=== PATIENT | female | born 1955 | race African-American/Black ===

== ENCOUNTER 2017-09-26 08:57 | Inpatient (IN) | payer MEDICARE, OTHER ==
[~2017-09-26] VITALS: Ht 167.6 cm; Wt 59.0 kg
[~2017-09-26 08:57] MED LIST: LEVE250T PO
[2017-09-26] MEDS ORDERED: LOSA1TAB37 PO (08:59)
[2017-09-26] MEDS ORDERED: LORazepam 2 MG/ML VIAL IVP ONE (09:15)
[2017-09-26 09:25] LABS: BASOPHILS % (AUTO) 0.2 % (0.0-2.0); EOSINOPHILS % (AUTO) 1.3 % (1.0-6.0); HEMATOCRIT 33.5 % (36-46); HEMOGLOBIN 11.3 g/dL (12.0-16.0); LYMPHOCYTES # (AUTO) 1.8 K/uL (1.0-4.8); LYMPHOCYTES % (AUTO) 37.2 % (22.0-44.0); MEAN CORPUSCULAR HEMOGLOBIN 28.5 pg (26.0-34.0); MEAN CORPUSCULAR HGB CONC 33.9 G/dL (31.0-37.0); MEAN CORPUSCULAR VOLUME 84 fL (80-100); MONOCYTES # (AUTO) 0.6 K/uL (0.1-1.0); MONOCYTES % (AUTO) 11.1 % (2.0-9.0); NEUTROPHILS # (AUTO) 2.5 K/uL (1.8-7.7); NEUTROPHILS % (AUTO) 50.2 % (40.0-70.0); PLATELET COUNT (AUTO) 164 K/uL (150-450); RED BLOOD CELL COUNT(AUTO) 3.98 MIL/uL (4.00-5.20); RED CELL DISTRIBUTION WIDTH 14.1 % (11.5-14.5)
[2017-09-26 09:40] LABS: ANION GAP 14 mmol/L (8-16); CALCIUM, TOTAL 8.9 mg/dL (8.8-10.5); CARBON DIOXIDE 24 mmol/L (22-29); CHLORIDE 105 mmol/L (98-107); CREATININE 0.95 mg/dL (0.60-1.30); GLOMERULAR FILTR. RATE CALC > 60 mL/min (>60); POTASSIUM 3.4 mmol/L (3.5-5.1); SODIUM SERUM 143 mmol/L (136-145); UREA NITROGEN, BLOOD 21 mg/dL (7-18)
[2017-09-26 09:46] LABS: ALANINE AMINOTRANSFERASE 15 U/L (12-78); ALBUMIN 3.7 g/dL (3.4-5.0); ASPARTATE AMINOTRANSFERASE 14 U/L (15-37); BILIRUBIN,TOTAL 0.2 mg/dL (0.1-1.0); TOTAL PROTEIN, SERUM 7.8 g/dL (6.4-8.2)
[2017-09-26] MEDS ORDERED: ACETAMINOPHEN 1000 MG/ISO-OSM 100 ML IV ONE (10:45)
[2017-09-26] MEDS ORDERED: LevETIRAcetam 500 MG in DEXTROSE 5%-WATER 100 ML IV ONE (10:45)
[2017-09-26] MEDS ORDERED: PHENYTOIN SODIUM 1,000 MG in SODIUM CHLORIDE 0.9% 150 ML IV ONE (10:45)
[2017-09-26] MEDS ORDERED: ACETAMINOPHEN 325 MG TABLET PO PRN (11:00)
[2017-09-26] MEDS ORDERED: MAGNESIUM HYDROXIDE SUSPENSION 30 ML UDCUP PO PRN (11:00)
[2017-09-26] MEDS ORDERED: LORazepam 2 MG/ML VIAL IVP PRN (11:00)
[2017-09-26] MEDS ORDERED: ALBUTEROL SULFATE 2.5 MG/0.5 ML NEB SOLUTION NEB PRN (11:00)
[2017-09-26] MEDS ORDERED: POTASSIUM CHL 10 MEQ/WATER 50 ML IV PRN (11:00)
[2017-09-26 11:57] VITALS: BP 134/78
[2017-09-26] MEDS ORDERED: LevETIRAcetam 1,000 MG in DEXTROSE 5%-WATER 100 ML IV ONE (12:00)
[2017-09-26] MEDS ORDERED: SODIUM CHLORIDE 0.9% 100 ML ONE (12:20)
[2017-09-26] MEDS: POTASSIUM CHLORIDE 20 MEQ ER TABLET PO PRN (12:53)
[2017-09-26] MEDS ORDERED: INFLUENZA VIRUS VACCINE QVS 2017-18 (3YR+)/PF 60 MCG/0.5 ML SYRINGE IM ONE (15:15)
[2017-09-26 15:17] VITALS: BP 113/76
[2017-09-26] MEDS: HEPARIN SODIUM,PORCINE 5,000 UNITS/ML VIAL SQ SCH (20:02)
[2017-09-26] MEDS: DOCUSATE SODIUM 100 MG CAPSULE PO SCH (20:02)
[2017-09-26 20:04] VITALS: BP 137/63
[2017-09-26] MEDS ORDERED: LevETIRAcetam 500 MG in DEXTROSE 5%-WATER 100 ML IV SCH (23:00)
[2017-09-26] MEDS: LevETIRAcetam 1,500 MG in DEXTROSE 5%-WATER 100 ML IV SCH (23:22)
[2017-09-26 23:40] VITALS: BP 144/82
[2017-09-27 04:04] VITALS: BP 128/81
[2017-09-27 07:03] VITALS: BP 119/78
[2017-09-27] MEDS: PANTOPRAZOLE SODIUM 40 MG DR TABLET PO SCH (08:16)
[2017-09-27] MEDS: DOCUSATE SODIUM 100 MG CAPSULE PO SCH ×2 (08:16→19:46)
[2017-09-27] MEDS: HEPARIN SODIUM,PORCINE 5,000 UNITS/ML VIAL SQ SCH ×2 (08:16→19:46)
[2017-09-27 10:42] VITALS: BP 123/80
[2017-09-27] MEDS ORDERED: SODIUM CHLORIDE 0.9% 50 ML ONE (11:58)
[2017-09-27] MEDS: LevETIRAcetam 1,500 MG in DEXTROSE 5%-WATER 100 ML IV SCH (12:01)
[2017-09-27 15:25] VITALS: BP 146/88
[2017-09-27] MEDS: ASPIRIN 81 MG CHEWABLE TABLET PO SCH (15:47)
[2017-09-27] MEDS: ATORVASTATIN CALCIUM 20 MG TABLET PO SCH (15:47)
[2017-09-27 19:33] VITALS: BP 112/74
[2017-09-27 23:32] VITALS: BP 138/83
[2017-09-28] MEDS: LevETIRAcetam 1,500 MG in DEXTROSE 5%-WATER 100 ML IV SCH ×2 (00:36→12:20)
[2017-09-28 04:23] VITALS: BP 129/81
[2017-09-28 06:19] LABS: BASOPHILS # (AUTO) 0.01 K/uL (0.00-0.20); BASOPHILS % (AUTO) 0.1 % (0.0-2.0); EOSINOPHILS # (AUTO) 0.03 K/uL (0.00-0.70); EOSINOPHILS % (AUTO) 0.62 % (1.0-6.0); HEMATOCRIT 33.4 % (36-46); HEMOGLOBIN 11.1 g/dL (12.0-16.0); LYMPHOCYTES # (AUTO) 1.7 K/uL (1.0-4.8); LYMPHOCYTES % (AUTO) 33.8 % (22.0-44.0); MEAN CORPUSCULAR HEMOGLOBIN 28.3 pg (26.0-34.0); MEAN CORPUSCULAR HGB CONC 33.3 G/dL (31.0-37.0); MEAN CORPUSCULAR VOLUME 85 fL (80-100); MONOCYTES # (AUTO) 0.6 K/uL (0.1-1.0); MONOCYTES % (AUTO) 12.2 % (2.0-9.0); NEUTROPHILS # (AUTO) 2.7 K/uL (1.8-7.7); NEUTROPHILS % (AUTO) 53.2 % (40.0-70.0); PLATELET COUNT (AUTO) 156 K/uL (150-450); RED BLOOD CELL COUNT(AUTO) 3.93 MIL/uL (4.00-5.20); RED CELL DISTRIBUTION WIDTH 14.2 % (11.5-14.5)
[2017-09-28 06:28] LABS: ANION GAP 7 mmol/L (8-16); CALCIUM, TOTAL 8.8 mg/dL (8.8-10.5); CARBON DIOXIDE 30 mmol/L (22-29); CHLORIDE 103 mmol/L (98-107); CREATININE 0.73 mg/dL (0.60-1.30); GLOMERULAR FILTR. RATE CALC > 60 mL/min (>60); POTASSIUM 3.3 mmol/L (3.5-5.1); SODIUM SERUM 140 mmol/L (136-145); UREA NITROGEN, BLOOD 9 mg/dL (7-18)
[2017-09-28 07:18] LABS: RBC MORPHOLOGY COMMENT NORMAL RBC MORPH
[2017-09-28 07:28] VITALS: BP 142/90
[2017-09-28] MEDS: PANTOPRAZOLE SODIUM 40 MG DR TABLET PO SCH (08:45)
[2017-09-28] MEDS: DOCUSATE SODIUM 100 MG CAPSULE PO SCH (08:45)
[2017-09-28] MEDS: ATORVASTATIN CALCIUM 20 MG TABLET PO SCH (08:45)
[2017-09-28] MEDS: POTASSIUM CHLORIDE 20 MEQ ER TABLET PO PRN (08:46)
[2017-09-28] MEDS: ASPIRIN 81 MG CHEWABLE TABLET PO SCH (08:46)
[2017-09-28] MEDS: HEPARIN SODIUM,PORCINE 5,000 UNITS/ML VIAL SQ SCH (08:47)
[2017-09-28 11:31] VITALS: BP 120/87
[2017-09-28] MEDS ORDERED: SODIUM CHLORIDE 0.9% 50 ML ONE (11:57)
[2017-09-28] MEDS ORDERED: LEVE500T53 PO (14:32)
[2017-09-28] MEDS ORDERED: ASPI81 PO (14:32)
== END 2017-09-28 15:00 | disposition home or self-care (01) | DRG 100 ==
LOC: EMS 08:59 → 5S 10:47
PROVIDERS: ADMIT Internal Medicine; ATTEND Internal Medicine
PROC: 3E0234Z Introduction of Serum, Toxoid and Vaccine into Muscle, Percutaneous Approach (ICD-10-PCS; principal; 2017-09-26)
DX: G40.909 Epilepsy, unspecified, not intractable, without status epilepticus (principal); E43 Unspecified severe protein-calorie malnutrition; I50.9 Heart failure, unspecified; I11.0 Hypertensive heart disease with heart failure; W19.XXXA Unspecified fall, initial encounter; F01.50 Vascular dementia, unspecified severity, without behavioral disturbance, psychotic disturbance, mood disturbance, and anxiety; E87.6 Hypokalemia; J44.9 Chronic obstructive pulmonary disease, unspecified; S00.83XA Contusion of other part of head, initial encounter; M19.90 Unspecified osteoarthritis, unspecified site; F17.210 Nicotine dependence, cigarettes, uncomplicated; Z86.69 Personal history of other diseases of the nervous system and sense organs; Z86.73 Personal history of transient ischemic attack (TIA), and cerebral infarction without residual deficits; Z79.899 Other long term (current) drug therapy; Z71.6 Tobacco abuse counseling; Z68.21 Body mass index [BMI] 21.0-21.9, adult; Z23 Encounter for immunization; Z82.49 Family history of ischemic heart disease and other diseases of the circulatory system; Y93.89 Activity, other specified; Y92.89 Other specified places as the place of occurrence of the external cause; Y99.8 Other external cause status
CPT/HCPCS: 70450; 72125; 84132; 90471; 93005; 96361; 96374; 96375; 99291; G0480; G0482; J0131; J0712; J1165; J1644; J7050; J7060

== ENCOUNTER 2017-09-28 17:56 | Inpatient (IN) | payer MEDICARE, OTHER ==
[~2017-09-28] VITALS: Ht 149.9 cm; Wt 49.4 kg
[~2017-09-28 17:56] MED LIST changes: +ASPI81 PO; +LEVE500T53 PO; +LOSA1TAB37 PO
[2017-09-28 19:38] LABS: BASOPHILS % (AUTO) 0.9 % (0.0-2.0); EOSINOPHILS % (AUTO) 0.9 % (1.0-6.0); HEMATOCRIT 33.2 % (36-46); HEMOGLOBIN 11.2 g/dL (12.0-16.0); LYMPHOCYTES # (AUTO) 1.6 K/uL (1.0-4.8); LYMPHOCYTES % (AUTO) 27.6 % (22.0-44.0); MEAN CORPUSCULAR HEMOGLOBIN 28.5 pg (26.0-34.0); MEAN CORPUSCULAR HGB CONC 33.8 G/dL (31.0-37.0); MEAN CORPUSCULAR VOLUME 84 fL (80-100); MONOCYTES # (AUTO) 0.7 K/uL (0.1-1.0); MONOCYTES % (AUTO) 12.8 % (2.0-9.0); NEUTROPHILS # (AUTO) 3.3 K/uL (1.8-7.7); NEUTROPHILS % (AUTO) 57.8 % (40.0-70.0); PLATELET COUNT (AUTO) 170 K/uL (150-450); RED BLOOD CELL COUNT(AUTO) 3.94 MIL/uL (4.00-5.20); RED CELL DISTRIBUTION WIDTH 14.4 % (11.5-14.5); WHITE BLOOD COUNT (AUTO) 5.7 K/uL (4.5-11.0)
[2017-09-28] MEDS ORDERED: LORazepam 2 MG/ML VIAL ONE (19:41)
[2017-09-28 19:43] LABS: ANION GAP 7 mmol/L (8-16); CALCIUM, TOTAL 8.8 mg/dL (8.8-10.5); CARBON DIOXIDE 28 mmol/L (22-29); CHLORIDE 103 mmol/L (98-107); CREATININE 0.96 mg/dL (0.60-1.30); GLOMERULAR FILTR. RATE CALC > 60 mL/min (>60); POTASSIUM 4.3 mmol/L (3.5-5.1); SODIUM SERUM 138 mmol/L (136-145); UREA NITROGEN, BLOOD 12 mg/dL (7-18)
[2017-09-28] MEDS ORDERED: LORazepam 2 MG/ML VIAL IVP ONE (19:45)
[2017-09-28 19:49] LABS: ALANINE AMINOTRANSFERASE 17 U/L (12-78); ALBUMIN 3.5 g/dL (3.4-5.0); ASPARTATE AMINOTRANSFERASE 16 U/L (15-37); BILIRUBIN,TOTAL 0.2 mg/dL (0.1-1.0); TOTAL PROTEIN, SERUM 7.3 g/dL (6.4-8.2)
[2017-09-28 20:29] LABS: APPEARANCE,URINE CLEAR (CLEAR); GLUCOSE, URINE (UA) NEGATIVE (NEGATIVE); KETONES,URINE NEGATIVE (NEGATIVE); LEUKOCYTE ESTERASE ,URINE NEGATIVE (NEGATIVE); OCCULT BLOOD,URINE NEGATIVE (NEGATIVE); PH,URINE 6.5 (5.0-8.0); PROTEIN,URINE NEGATIVE (NEGATIVE)
[2017-09-28 20:42] LABS: ADD UA MICROSCOPIC NO
[2017-09-28] MEDS ORDERED: BISACODYL 10 MG RECTAL RECTAL SUPPOSITORY PR PRN (22:00)
[2017-09-28] MEDS ORDERED: ALBUTEROL SULFATE 2.5 MG/0.5 ML NEB SOLUTION NEB PRN (22:00)
[2017-09-28] MEDS ORDERED: ACETAMINOPHEN 325 MG TABLET PO PRN (22:00)
[2017-09-28] MEDS ORDERED: LACOSAMIDE 100 MG in DEXTROSE 5%-WATER 100 ML IV ONE (22:00)
[2017-09-28] MEDS ORDERED: LORazepam 2 MG/ML VIAL IVP PRN (23:30)
[2017-09-29] MEDS: HEPARIN SODIUM,PORCINE 5,000 UNITS/ML VIAL SQ SCH ×3 (00:15→17:08)
[2017-09-29 09:01] VITALS: BP 126/87
[2017-09-29] MEDS: PANTOPRAZOLE SODIUM 40 MG DR TABLET PO SCH (09:07)
[2017-09-29] MEDS: LevETIRAcetam 500 MG TABLET PO SCH ×2 (09:07→20:16)
[2017-09-29] MEDS: DOCUSATE SODIUM 100 MG CAPSULE PO SCH ×2 (09:07→20:16)
[2017-09-29 11:34] VITALS: BP 139/80
[2017-09-29] MEDS: LACOSAMIDE 100 MG TABLET PO SCH ×2 (11:56→20:17)
[2017-09-29 15:07] VITALS: BP 101/65
[2017-09-29 20:52] VITALS: BP 125/72
[2017-09-30] MEDS: HEPARIN SODIUM,PORCINE 5,000 UNITS/ML VIAL SQ SCH ×2 (00:20→08:05)
[2017-09-30 05:19] VITALS: BP 109/72
[2017-09-30 07:41] VITALS: BP 124/80
[2017-09-30] MEDS: LACOSAMIDE 100 MG TABLET PO SCH (08:04)
[2017-09-30] MEDS: LevETIRAcetam 500 MG TABLET PO SCH (08:04)
[2017-09-30] MEDS: DOCUSATE SODIUM 100 MG CAPSULE PO SCH (08:04)
[2017-09-30] MEDS: PANTOPRAZOLE SODIUM 40 MG DR TABLET PO SCH (08:04)
[2017-09-30 10:35] VITALS: BP 134/76
[2017-09-30] MEDS ORDERED: LACO50TA2 PO (11:00)
[2017-09-30] MEDS ORDERED: LACO100 PO (11:41)
== END 2017-09-30 13:00 | disposition home or self-care (01) | DRG 101 ==
LOC: EMS 17:56 → 5S 22:24 → UNDOADMIN 22:24 → 5S 09-29 06:27
PROVIDERS: ADMIT Internal Medicine; ATTEND Internal Medicine
DX: G40.901 Epilepsy, unspecified, not intractable, with status epilepticus (principal); I11.0 Hypertensive heart disease with heart failure; I50.9 Heart failure, unspecified; F17.210 Nicotine dependence, cigarettes, uncomplicated; Z87.820 Personal history of traumatic brain injury
CPT/HCPCS: 70450; 70551; 87081; 93005; 96365; 96366; 96375; 97162; 97530; 99285; C9254; J1644; J2060; J7060

== ENCOUNTER 2018-11-15 23:48 | Emergency (ER) | payer MEDICARE, OTHER ==
[~2018-11-15] VITALS: Ht 152.4 cm; Wt 50.0 kg
[~2018-11-15 23:48] MED LIST changes: +LACO100 PO; +LACO50TA2 PO; -LEVE250T PO; -LOSA1TAB37 PO
[2018-11-15] MEDS ORDERED: ATOR40TA28 PO (23:59)
[2018-11-15] MEDS ORDERED: HYDR10TA31 PO (23:59)
[2018-11-15] MEDS ORDERED: VITAD1000 PO (23:59)
[2018-11-15] MEDS ORDERED: LOSA25TA41 PO (23:59)
[2018-11-16] MEDS ORDERED: LACOSAMIDE 100 MG TABLET PO ONE (00:45)
[2018-11-16 01:26] LABS: APPEARANCE,URINE CLEAR (CLEAR); BILIRUBIN,URINE NEGATIVE (NEGATIVE); GLUCOSE, URINE (UA) NEGATIVE (NEGATIVE); KETONES,URINE NEGATIVE (NEGATIVE); LEUKOCYTE ESTERASE ,URINE NEGATIVE (NEGATIVE); NITRATE,URINE NEGATIVE (NEGATIVE); OCCULT BLOOD,URINE NEGATIVE (NEGATIVE); PH,URINE 6.5 (5.0-8.0); PROTEIN,URINE NEGATIVE (NEGATIVE); UROBILINOGEN,URINE 0.2 mg/dL (<=1.0)
[2018-11-16 01:26] LABS: BASOPHILS % (AUTO) 0.2 % (0.0-2.0); EOSINOPHILS % (AUTO) 2.4 % (1.0-6.0); HEMATOCRIT 32.9 % (36-46); HEMOGLOBIN 10.8 g/dL (12.0-16.0); LYMPHOCYTES # (AUTO) 1.7 K/uL (1.0-4.8); LYMPHOCYTES % (AUTO) 31.1 % (22.0-44.0); MEAN CORPUSCULAR HEMOGLOBIN 28.3 pg (26.0-34.0); MEAN CORPUSCULAR HGB CONC 32.9 G/dL (31.0-37.0); MEAN CORPUSCULAR VOLUME 86 fL (80-100); MONOCYTES # (AUTO) 0.8 K/uL (0.1-1.0); MONOCYTES % (AUTO) 14.2 % (2.0-9.0); NEUTROPHILS # (AUTO) 2.9 K/uL (1.8-7.7); NEUTROPHILS % (AUTO) 52.1 % (40.0-70.0); PLATELET COUNT (AUTO) 180 K/uL (150-450); RED BLOOD CELL COUNT(AUTO) 3.83 MIL/uL (4.00-5.20); RED CELL DISTRIBUTION WIDTH 14.7 % (11.5-14.5)
[2018-11-16 01:31] LABS: AMPHET/METH SCREEN,URINE NEGATIVE (NEGATIVE); BARBITURATE SCREEN, URINE NEGATIVE (NEGATIVE); BENZODIAZEPINES SCREEN,URINE NEGATIVE (NEGATIVE); CANNABINOID SCREEN,URINE NEGATIVE (NEGATIVE); COCAINE SCREEN,URINE NEGATIVE (NEGATIVE); METHADONE SCREEN, URINE NEGATIVE (NEGATIVE); OPIATE SCREEN,URINE NEGATIVE (NEGATIVE); PHENCYCLIDINE SCREEN,URINE NEGATIVE (NEGATIVE)
[2018-11-16 01:33] LABS: ANION GAP 5 mmol/L (8-16); CALCIUM, TOTAL 9.5 mg/dL (8.8-10.5); CARBON DIOXIDE 35 mmol/L (22-29); CHLORIDE 102 mmol/L (98-107); CREATININE 0.87 mg/dL (0.60-1.30); GLOMERULAR FILTR. RATE CALC > 60 mL/min (>60); GLUCOSE,RANDOM 124 mg/dL (70-110); POTASSIUM 3.8 mmol/L (3.5-5.1); SODIUM SERUM 142 mmol/L (136-145); UREA NITROGEN, BLOOD 22 mg/dL (7-18)
[2018-11-16 01:40] LABS: ALANINE AMINOTRANSFERASE 25 U/L (12-78); ALBUMIN 3.8 g/dL (3.4-5.0); ALKALINE PHOSPHATASE 73 U/L (46-116); ASPARTATE AMINOTRANSFERASE 18 U/L (15-37); BILIRUBIN,TOTAL 0.1 mg/dL (0.1-1.0); TOTAL PROTEIN, SERUM 7.6 g/dL (6.4-8.2)
[2018-11-16 02:04] VITALS: BP 123/72
== END 2018-11-16 02:22 | disposition home or self-care (01) ==
LOC: EMS 23:48
DX: G40.909 Epilepsy, unspecified, not intractable, without status epilepticus (principal); I11.0 Hypertensive heart disease with heart failure; I50.9 Heart failure, unspecified; Z87.891 Personal history of nicotine dependence

== ENCOUNTER 2022-11-24 19:06 | Emergency (ER) | payer MEDICARE, OTHER ==
[~2022-11-24] VITALS: Ht 157.5 cm; Wt 52.3 kg
[~2022-11-24 19:06] MED LIST changes: +ASPI-1450 PO; -ASPI81 PO; +ATOR40TA28 PO; +CHOL100018 PO; +HYDR10TA31 PO; -LACO50TA2 PO; +LEVE500T20 PO; -LEVE500T53 PO; +LOSA-381 PO
[2022-11-24] MEDS ORDERED: LIDOCAINE 1%/EPI 1:200,000/PF 30 ML VIAL SQ ONE (19:30)
[2022-11-24] MEDS ORDERED: BACITRACIN 0.9 GM PACKET OINTMENT TP ONE (19:30)
[2022-11-24] MEDS ORDERED: PERTUSS(ACELL),DIPH,TET VAC/PF 0.5 ML SYRINGE IM. ONE (19:30)
[2022-11-24] MEDS ORDERED: CITA10TA99 PO (19:39)
[2022-11-24] MEDS ORDERED: LACO200T4 PO (19:39)
[2022-11-24] MEDS ORDERED: POTA-206 PO (19:39)
[2022-11-24] MEDS ORDERED: LOSA1TAB37 PO (19:39)
[2022-11-24 20:27] LABS: COVID AG,FIA SOURCE NASOPHARYNGEAL
[2022-11-24 20:58] LABS: INFLUENZA TYPE A NEGATIVE FOR TYPE A (NEGATIVE); INFLUENZA TYPE B NEGATIVE FOR TYPE B (NEGATIVE)
[2022-11-24 22:27] VITALS: BP 135/78
== END 2022-11-24 22:30 | disposition home or self-care (01) ==
LOC: EMS 19:12
DX: S01.112A Laceration without foreign body of left eyelid and periocular area, initial encounter (principal); I11.0 Hypertensive heart disease with heart failure; I50.9 Heart failure, unspecified; Z87.891 Personal history of nicotine dependence; Z20.822 Contact with and (suspected) exposure to COVID-19; W19.XXXA Unspecified fall, initial encounter; Y93.89 Activity, other specified; Y92.89 Other specified places as the place of occurrence of the external cause; Y99.8 Other external cause status
CPT/HCPCS: 99285; 70450; 71045; 87426; 87804; 70486; 72125; 90715; 90471; 12013; J3490

== ENCOUNTER 2022-12-01 16:17 | Emergency (ER) | payer MEDICARE, OTHER ==
[~2022-12-01] VITALS: Ht 154.9 cm; Wt 50.0 kg
[~2022-12-01 16:17] MED LIST changes: -ATOR40TA28 PO; +CITA10TA99 PO; -LACO100 PO; +LACO200T4 PO; -LOSA-381 PO; +LOSA1TAB37 PO; +POTA-206 PO
[2022-12-01 16:29] VITALS: BP 146/88
== END 2022-12-01 17:27 | disposition home or self-care (01) ==
LOC: EMS 16:17
DX: S01.112A Laceration without foreign body of left eyelid and periocular area, initial encounter (principal); I11.0 Hypertensive heart disease with heart failure; I50.9 Heart failure, unspecified; R56.9 Unspecified convulsions; Z87.891 Personal history of nicotine dependence; X58.XXXA Exposure to other specified factors, initial encounter; Y93.89 Activity, other specified; Y92.89 Other specified places as the place of occurrence of the external cause; Y99.8 Other external cause status
CPT/HCPCS: 99281; Z7502